=== PATIENT | female | born 1935 | race Caucasian/White ===

== ENCOUNTER 2017-11-23 16:17 | Emergency (ER) | payer OTHER ==
[~2017-11-23] VITALS: Ht 162.6 cm; Wt 83.0 kg
[2017-11-23 16:24] VITALS: BP 171/84
[2017-11-23] MEDS ORDERED: NORVASC5 MG PO (16:29)
[2017-11-23] MEDS ORDERED: ZANTAC 150MG T150 MG PO (16:30)
[2017-11-23] MEDS ORDERED: CELEBREX 200 M200 M1 PO (16:30)
[2017-11-23] MEDS ORDERED: CLEOCIN HCL150 MG PO (16:31)
[2017-11-23] MEDS ORDERED: HYDROXYZINE HCL25 M1 PO (16:31)
[2017-11-23] MEDS ORDERED: XANAX 0.25 MG0.25 MG PO (16:31)
[2017-11-23] MEDS ORDERED: MIRALAX17 GM PO (16:32)
[2017-11-23] MEDS ORDERED: EFFEXOR 5050 MG/1 T1 PO (16:32)
[2017-11-23] MEDS ORDERED: CALCIUM 500 +1 EAC5 PO (16:32)
[2017-11-23] MEDS ORDERED: OMEPRAZOLE40 MG PO (16:33)
[2017-11-23] MEDS ORDERED: CARVEDILOL12.5 MG PO (16:33)
[2017-11-23] MEDS ORDERED: ZOCOR20 MG PO ×2 (16:33→16:34)
[2017-11-23] MEDS ORDERED: NEURONTIN 300300 M1 PO (16:33)
[2017-11-23] MEDS ORDERED: OXYBUTYNIN 5 MG5 M2 PO (16:34)
[2017-11-23] MEDS ORDERED: CLARITIN10 MG PO (16:49)
== END 2017-11-23 16:51 | disposition home or self-care (01) ==
LOC: M.ERS 16:17
DX: L25.9 Unspecified contact dermatitis, unspecified cause (principal); I10 Essential (primary) hypertension; Z88.0 Allergy status to penicillin; Z88.5 Allergy status to narcotic agent; Z88.8 Allergy status to other drugs, medicaments and biological substances; Z90.710 Acquired absence of both cervix and uterus; Z90.49 Acquired absence of other specified parts of digestive tract; Z87.442 Personal history of urinary calculi; Z96.653 Presence of artificial knee joint, bilateral